=== PATIENT | male | born 1970 | race Caucasian/White ===

== ENCOUNTER 2016-08-31 11:50 | Emergency (ER) | payer OTHER ==
[~2016-08-31] VITALS: Ht 190.5 cm; Wt 122.6 kg
[2016-08-31] MEDS ORDERED: TRAMADOL HCL50 MG PO (15:06)
[2016-08-31 15:19] VITALS: BP 148/86
== END 2016-08-31 15:19 | disposition home or self-care (01) ==
LOC: EME 11:50
PROC: 3E0T3BZ Introduction of Anesthetic Agent into Peripheral Nerves and Plexi, Percutaneous Approach (ICD-10-PCS; principal; 2016-08-31)
DX: S68.022A Partial traumatic metacarpophalangeal amputation of left thumb, initial encounter (principal); W26.0XXA Contact with knife, initial encounter; Y99.0 Civilian activity done for income or pay
CPT/HCPCS: 73140; 99281; 99284

== ENCOUNTER 2017-01-29 21:25 | Emergency (ER) | payer OTHER ==
[~2017-01-29] VITALS: Ht 190.5 cm; Wt 109.0 kg
[~2017-01-29 21:25] MED LIST: TRAMADOL HCL50 MG PO
[2017-01-29] MEDS ORDERED: LIDODERM 5% P1 PATCH TD (22:28)
[2017-01-29] MEDS ORDERED: MOTRIN800 MG PO (22:28)
[2017-01-29] MEDS ORDERED: FLEXERIL10 MG PO (22:40)
[2017-01-29 22:47] VITALS: BP 150/92
== END 2017-01-29 22:50 | disposition home or self-care (01) ==
LOC: EME 21:25
DX: S20.222A Contusion of left back wall of thorax, initial encounter (principal); W10.9XXA Fall (on) (from) unspecified stairs and steps, initial encounter
CPT/HCPCS: 71100; 72070; 99281; 99283